=== PATIENT | male | born 1940 | race Caucasian/White ===

== ENCOUNTER → 2020-09-13 | Outpatient (CLI) | payer OTHER ==
--- NOTE | 2020-09-13 09:51 | REP ---
INDICATION: CIRRHOSIS OF LIVER COMPARISON: None. TECHNIQUE: Real time toribio scale ultrasound examination using curved array transducer. FINDINGS: Liver demonstrates coarsened echotexture without focal hepatic lesion and no obvious hepatomegaly. Pancreas is incompletely evaluated due to interposed bowel gas. The gallbladder is normal and without gallstones, wall thickening, or pericholecystic fluid. No biliary ductal dilatation is appreciated and the common bile duct measures 4.0 mm diameter. Right kidney is normal in reniform shape without hydronephrosis and measures 13.5 x 5.8 x 5.4 cm with a 2.2 x 1.5 x 1.0 cm upper pole exophytic cyst. No ascites in the visualized right upper quadrant. IMPRESSION: 1. Coarsened hepatic echotexture consistent with the given history of cirrhosis. No focal hepatic lesion identified. 2. 2.2 cm exophytic upper pole right renal cyst suggested. <Electronically signed by Ever Choudhary > 09/13/20 0944
== END ==
LOC: M RAD 09:11
PROVIDERS: ATTEND Nurse Practitioner Family
DX: K74.60 Unspecified cirrhosis of liver (principal); N28.1 Cyst of kidney, acquired